=== PATIENT | female | born 1950 | race Caucasian/White ===

== ENCOUNTER 2016-12-22 10:26 | Emergency (ER) | payer OTHER ==
[~2016-12-22] VITALS: Ht 157.5 cm; Wt 54.4 kg
--- NOTE | ~2016-12-22 | EKG ---
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 : 1950 Requested By: Clemencia Hernandes Order Number: [id number] MD: Lev Zepeda Measurements Intervals [place] Rate: 96 P: AL: QRS: 75 QRSD: 116 T: -85 QT: 376 QTc: 476 Interpretive Statements Atrial fibrillation Multiple ventricular premature complexes Nonspecific intraventricular conduction delay Borderline repolarization abnormality No previous ECG available for comparison Electronically Signed On 12-23-2016 7:52:41 CDT by Lev Zepeda [email or web address] <ELECTRONICALLY SIGNED> By: Lev Zepeda MD, [facility] 12/23/16 0752 1036 1036 Lev Zepeda MD, FACC /EPI
[2016-12-22 10:26] VITALS: BP 127/78
[2016-12-22 11:16] LABS: ABSOLUTE NEUTROPHILS 5.4 thou/uL (1.4-8.2); EOSINOPHILS 1.9 % (0.0-3.0); HEMATOCRIT 36.2 % (37.0-47.0); HEMOGLOBIN 12.3 gm/dL (12.0-15.0); LYMPHOCYTES 11.6 % (24.0-44.0); MCH 30.6 pg (26.0-34.0); MCHC 33.9 g/dL (28.0-37.0); MCV 90.1 fL (80.0-100.0); MONOCYTES 9.6 % (1.0-8.0); PLATELET COUNT 242 thou/uL (150-400); POLYS 75.9 % (36.0-66.0); RBC 4.01 mil/uL (4.20-5.00); RDW 15.2 % (10.5-14.5); WBC 7.1 thou/uL (4.0-11.0)
[2016-12-22 11:17] LABS: MANUAL DIFF NO
[2016-12-22] MEDS ORDERED: PRAVACHOL20 MG PO (11:24)
[2016-12-22] MEDS ORDERED: COREG3.125 MG PO (11:25)
[2016-12-22] MEDS ORDERED: DIGOXIN125 MCG PO (11:25)
[2016-12-22] MEDS ORDERED: JANUMET 50-1,01 EACH PO (11:25)
[2016-12-22] MEDS ORDERED: LASIX 80 MG TAB80 MG PO (11:25)
[2016-12-22 11:26] LABS: CALCIUM 9.3 mg/dL (8.5-10.1); CREATININE 0.8 mg/dL (0.6-1.0); POTASSIUM 3.5 mmol/L (3.5-5.1)
[2016-12-22] MEDS ORDERED: IRON325 PO (11:26)
[2016-12-22] MEDS ORDERED: NP THYROID90 MG PO (11:26)
[2016-12-22] MEDS ORDERED: COLACE100 MG PO (11:27)
[2016-12-22] MEDS ORDERED: COUMADIN 2 MG TA2 M1 PO (11:27)
[2016-12-22] MEDS ORDERED: POTASSIUM SUPP (11:27)
[2016-12-22 11:29] LABS: INR 2.1; PROTIME 21.6 Seconds (9.3-11.4)
[2016-12-22 11:38] LABS: TROPONIN-I 0.04 ng/mL (<0.04-0.07)
[2016-12-22 11:40] LABS: ALBUMIN 3.5 g/dL (3.4-5.0); DIRECT BILIRUBIN 0.3 mg/dL (<0.1-0.3); TOTAL BILIRUBIN 1.1 mg/dL (<0.1-1.0); TOTAL PROTEIN 6.3 g/dL (6.4-8.2)
[2016-12-22 12:19] LABS: ABG SAMPLE TYPE ARTERIAL; BE(vivo) 1.1 mmol/L (-2 to +3); HCO3 24.2 mmol/L (22.0-26.0); LACTATE 0.99 mmol/L (0.5-2.0); PO2 83.1 mmHg (80.0-100.0); STICK SITE R.RADIAL; sO2 96.8 % (92.0-98.0); tCO2 25.2 mmol/L (24.0-30.0)
[2016-12-22] MEDS ORDERED: LEVAQUIN 500 M500 MG PO (13:05)
[2016-12-22 13:45] VITALS: BP 114/76
== END 2016-12-22 13:45 | disposition home or self-care (01) ==
LOC: ER 10:26 → EROBS 12:01 → ER 13:45
PROVIDERS: Emergency Medicine
DX: J18.8 Other pneumonia, unspecified organism (principal); I48.91 Unspecified atrial fibrillation; E03.9 Hypothyroidism, unspecified; I10 Essential (primary) hypertension; E11.9 Type 2 diabetes mellitus without complications; Z95.2 Presence of prosthetic heart valve; Z88.6 Allergy status to analgesic agent; Z88.8 Allergy status to other drugs, medicaments and biological substances; Z88.0 Allergy status to penicillin; Z91.048 Other nonmedicinal substance allergy status

== ENCOUNTER → 2016-12-23 | Outpatient (CLI) | payer OTHER ==
[~2016-12-23] MED LIST: COLACE100 MG PO; COREG3.125 MG PO; COUMADIN 2 MG TA2 M1 PO; DIGOXIN125 MCG PO; IRON325 PO; JANUMET 50-1,01 EACH PO; LASIX 80 MG TAB80 MG PO; LEVAQUIN 500 M500 MG PO; NP THYROID90 MG PO; POTASSIUM SUPP; PRAVACHOL20 MG PO
--- NOTE | ~2016-12-23 | 2DMMODE ---
[facility] [place] [address] 2 D/M-MODE ECHOCARDIOGRAM Name: GUILLERMINA PINO Room #: REG [facility]#: [id number] Admission: 12/23/16 Attend Phys: Tong Aguilar MD Discharge: Date of : 54 Date of Service: 12/23/16 1626 Report #: [id number] THIS REPORT FOR: //name// APPROVED REPORT Study performed: 12/23/2016 15:39:29 EXAM: Comprehensive 2D, Doppler, and color-flow Echocardiogram Patient Location: Out-Patient Blood Pressure: 110/72 mmHg HR: 107 bpm Rhythm: Atrial Fibrillation Other Information Study Quality: Good Indications ICD: Dyspnea Atrial Fibrillation Cardiomyopathy Mechanical Mitral valve. 2D Dimensions RVDd: 47.14 mm LVEF(%): 35.94 (>50%) IVSd: 6.35 (7-11mm) LVOT Diam: 18.06 (18-24mm) LVDd: 66.71 mm PWd: 9.30 (7-11mm) Ascending Aorta: 34.67 mm LVDs: 54.89 (25-40mm) IVC: 28.00 mm Aortic Root: 29.87 mm Antonio's LVEF: 35.94 % Aortic Valve AoV Peak Hair.: 1.42 m/s AO Peak Gr.: 8.08 mmHg LV Max P.83 mmHg LV Max: 0.97 m/s Mitral Valve MV Peak Gr.: 18.62 mmHg MV PHT: 61.53 ms MV Mean Gr.: 5.93 mmHg MV Max Hair.: 2.16 m/s MV Mean Hair.: 1.04 m/s [facility] [address] [place] [address] 2 D/M-MODE ECHOCARDIOGRAM Name: GUILLERMINA PINO Room #: REG [facility]#: [id number] Admission: 12/23/16 Attend Phys: Tong Aguilar MD Discharge: Date of : 54 Date of Service: 12/23/16 1626 Report #: [id number] VTI: 358.23 mm Pulmonary Valve PV Peak Hair.: 1.00 m/s PV Peak Gr.: 3.98 mmHg Tricuspid Valve TR Peak Hair.: 3.63 m/s RAP Estimate: 10.00 mmHg TR Peak Gr.: 52.86 mmHg Left Ventricle Left ventricle is dilated. There is global hypokinesis of the left ventricle. There is normal left ventricular wall thickness. Left ventricular ejection fraction is severely decreased. LVEF is 20-25%. Diastolic function cannot be accurately assessed. Right Ventricle Right ventricle is mildly dilated. Right ventricle is hypokinetic. Atria Left atrium is severely dilated. Right atrium is severely dilated. Aortic Valve Aortic valve is trileaflet. Aortic valve is calcified. No aortic regurgitation is present. There is no aortic valvular stenosis. Mitral Valve The mitral valve is normal in structure. There is a mechanical mitral valve. The prosthetic mitral valve is not well visualized due to imaging artifacts from the prosthesis. There is no mitral valve regurgitation noted. Tricuspid Valve The tricuspid valve is normal in structure. There is severe tricuspid regurgitation. The right atrial pressure is estimated at 10 mmHg. There is severe pulmonary hypertension. Pulmonic Valve The pulmonary valve is normal in structure. There is no pulmonic valvular regurgitation. Great Vessels The aortic root is normal in size. IVC is dilated and collapses >50% with inspiration. [facility] [address] [place] [address] 2 D/M-MODE ECHOCARDIOGRAM Name: GUILLERMINA PINO Room #: REG [facility]#: [id number] Admission: 12/23/16 Attend Phys: Tong Aguilar MD Discharge: Date of : 54 Date of Service: 12/23/16 1626 Report #: [id number] Pericardium There is no pericardial effusion. <Conclusion> Left ventricle is dilated. Left ventricular ejection fraction is severely decreased. Right ventricle is mildly dilated. Left atrium is severely dilated. Right atrium is severely dilated. There is no aortic valvular stenosis. There is a mechanical mitral valve. The prosthetic mitral valve is not well visualized due to imaging artifacts from the prosthesis. There is severe tricuspid regurgitation. The right atrial pressure is estimated at 10 mmHg. There is severe pulmonary hypertension. <ELECTRONICALLY SIGNED> By: Tong Aguilar MD 12/23/16 1626 1626 1626 Tong Aguilar MD /INF
== END ==
LOC: CV 14:49
DX: R06.00 Dyspnea, unspecified (principal); I48.91 Unspecified atrial fibrillation; I42.9 Cardiomyopathy, unspecified

== ENCOUNTER 2016-12-27 14:14 | Inpatient (IN) | payer OTHER ==
[2016-12-27] VITALS (18 sets, daily range): BP systolic 99–176; BP diastolic 47–96
[~2016-12-27] VITALS: Ht 157.5 cm; Wt 58.3 kg
--- NOTE | ~2016-12-27 | HC ---
[facility] [place] [address] CONSULTATION Name: GUILLERMINA PINO Room #: 210-P [facility] IN M.R.#: [id number] Admission: 12/27/16 Attend Phys: Lane Li Discharge: 12/31/16 Date of : 54 Report #: [id number] THIS REPORT FOR: //name// CC: ALLI physician/PCP Lane Li INFECTIOUS DISEASE CONSULTATION HISTORY OF PRESENT ILLNESS: A 66-year-old white woman undergoes placement of an AICD through subxiphoid approach in 2015 and since May or June 2016, the patient is having chronic draining sinus tract in the subxiphoid area. Apparently, the patient received treatment with topical antibiotics. There is query about what she was advised, the reason for this chronic sinus tract is and she has no clear understanding of what is going on or she was not explained properly what was going on. Anyway, the patient is here now because of AICD firing. Apparently, recently treated with Levaquin for right lower lobe pneumonia and possibility that this may have triggered some cardiac arrhythmias entertained. No systemic symptoms. The patient relates she has chronic epigastric discomfort and some nausea shortly after eating. PAST MEDICAL HISTORY: Appendectomy. Tubal ligation. Hysterectomy. Cholecystectomy. Mitral valve replacement with a Cortez-Perdomo valve in 1976. Placement of AICD through left subxiphoid area in 2015. Chronic draining sinus tract. Cardiomyopathy. Congestive heart failure. SOCIAL HISTORY: , 3 children. No tobacco, no alcohol. DRUG ALLERGIES: ACETAMINOPHEN, CLINDAMYCIN, MELATONIN, PENICILLIN and QUINIDINE. MEDICATIONS: She is on treatment with cefuroxime 500 mg p.o. b.i.d., furosemide 80 mg p.o. daily, potassium chloride 20 mEq p.o. daily, alprazolam p.r.n., temazepam p.r.n., nitroglycerin p.r.n., magnesium and potassium supplementation per protocol and has received amiodarone intravenously. REVIEW OF SYSTEMS: See H and P, previous consultation. PHYSICAL EXAMINATION: GENERAL: Chronically ill-appearing woman, not toxic looking. VITAL SIGNS: Presenting with following vital signs: Temperature 97.5, pulse 62, respirations 21 and BP 122/54. HEENT: Head normocephalic, atraumatic. Pupils reactive. Mouth, no thrush. NECK: Supple. LUNGS: Decreased to absent breath sounds, right base. HEART: S1 and S2. mitral valvular sounds. [facility] [address] [place] [address] CONSULTATION Name: GUILLERMINA PINO Room #: 210-P [facility] IN M.R.#: [id number] Admission: 12/27/16 Attend Phys: Lane Li Discharge: 12/31/16 Date of : 54 Report #: [id number] BREAST EXAMINATION: Deferred. ABDOMEN: Hepatomegaly. PELVIC AND RECTAL EXAMINATION: Deferred. EXTREMITIES: No clubbing or cyanosis. CHEST EXAMINATION: There is a chronic draining sinus tract open wound in the subxiphoid area. No foul odor. NEUROLOGIC: Grossly within normal limits. LABORATORY DATA: Sodium 137, potassium 3.1, BUN 37, creatinine 1.1 and calcium 8.2. Albumin 2.5 g/dL. NT-proBNP 5553. Protime 48.7, INR 4.7. WBC 12.1, hemoglobin 12.7 and platelets 262,000. Incision gram stain revealed few WBCs, no organism and culture negative so far. RADIOLOGIC EVALUATION: Chest x-ray revealed significant cardiomegaly, a Cortez-Perdomo mitral valve prosthesis and left-sided chest ICD with wires going through the subxiphoid area. There is a lytic lesion in the left humerus. ASSESSMENT: 1. Chronic draining sinus tract, subxiphoid area, possibly infected defibrillator leads. 2. Status post Cortez-Perdomo mitral valve replacement in 1976. 3. Cardiomyopathy - ischemic. Congestive heart failure. Pulmonary hypertension. 4. Right lower lobe atelectasis, infiltrate. 5. Lytic lesion, left humerus. 6. Chronic kidney disease. 7. Hepatomegaly, possibly secondary to pulmonary hypertension. 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 I agree with CT scan of the chest. We will evaluate later on. Continue cefuroxime for time being. Obviously, if ICD leads are infected, these must be removed, though she is a high-risk surgical candidate. For the time being, continue cefuroxime. Final recommendations regarding antibiotic management pending culture results. Dr. Li and Dr. Stephenson, thank you for requesting my suggestions. <ELECTRONICALLY SIGNED> By: Cash Stephenson MD 01/05/17 1124 [id number] 0039 Cash Stephenson MD /nt
--- NOTE | ~2016-12-27 | HC ---
[facility] [place] [address] CONSULTATION Name: GUILLERMINA PINO Room #: 210-P ADM IN M.R.#: [id number] Admission: 12/27/16 Attend Phys: Lane Li Discharge: Date of : 54 Report #: [id number] THIS REPORT FOR: //name// CC: FAM physician/PCP Lane Li DATE OF SERVICE: 12/29/2016 PERSONAL PHYSICIAN: Dr. Li. CHIEF COMPLAINT: Sternal wound. HISTORY OF PRESENT ILLNESS: This is a 66-year-old white female who underwent defibrillator placement back in July of 2016 in [place] secondary to cardiac arrest from ventricular fibrillation. The patient states she travels around the country in a mobile home and most recently was having significant firing of her defibrillator, which prompted her to come to the Emergency Department to be evaluated. The patient supposedly had seen Dr. Aguilar from cardiology approximately a week ago who evaluated this defibrillator and felt it was okay for patient to go home; however, the patient states prior to admission to the hospital, patient was having multiple defibrillator firings, next had one in the Triage area of the Emergency Department. The patient because of this was admitted to the hospital. Upon admission to the hospital, the patient was noted to have a open sterile wound, which I have been asked to assist in the care of this time. The patient states the wound itself has been started as a small blister very shortly after the operative procedure putting the pacemaker. The patient states that it has slowly gotten better, but has not seen any type of wound care physician had done any specific type of treatments for this. PAST MEDICAL HISTORY: Atrial fibrillation, status post artificial mitral valve replacement, hypothyroidism, hypertension, diabetes, myocardial infarction back in 05/2016 with defibrillator placement placed in 07/2016. CURRENT MEDICATIONS: Multiple, reviewed the patient's medication list. DRUG ALLERGIES: PENICILLIN, QUINIDINE, CLINDAMYCIN, AND ACETAMINOPHEN. SOCIAL HISTORY: The patient states she does not smoke. She drinks alcohol. She and her travel around in [facility] in a motel home. FAMILY HISTORY: Not pertinent to current medical condition. REVIEW OF SYSTEMS: CONSTITUTIONAL: The patient denies fevers or chills. NEUROLOGIC: The patient has overall generalized weakness, but no isolated weakness in arms or legs. [address] [address] CONSULTATION Name: GUILLERMINA PINO Room #: 210[facility] IN M.R.#: [id number] Admission: 12/27/16 Attend Phys: Lane Li Discharge: Date of : 54 Report #: [id number] EYES: No complaints. ENT: No complaints. CARDIAC: The patient complains of persistent defibrillator firing but no actual chest pain, palpitations. RESPIRATORY: The patient has mild shortness of breath, but no associated cough or wheezes; however, the patient states she is actually currently being treated for pneumonia. GASTROINTESTINAL: The patient has a chronic nausea, but no actual abdominal pain. GENITOURINARY: The patient denies urgency or frequency. MUSCULOSKELETAL: No complaints. SKIN: There is open wound in the sternal region. PHYSICAL EXAMINATION: VITAL SIGNS: Stable. The patient is afebrile. GENERAL: This is an alert and oriented x 3, pleasant white female who is in no acute distress. HEENT: Normocephalic, atraumatic. Mucous membranes are dry. Pupils are round. Sclerae are white. NECK: Shows positive JVD, but no masses. BACK: Nontender. LUNGS: Clear. HEART: Regular. Chest wall shows an open wound at the inferior aspect of the sternum, which is mainly slough filled, however, with direct visualization within the wound you can see the exposed defibrillator leads, periwound itself is intact without significant erythema, warmth or signs of cellulitis. ABDOMEN: Soft, nontender. EXTREMITIES: The patient moves all extremities without difficulty. Bilateral heels are intact. NEUROLOGIC: Cranial nerves 2-12 are grossly intact. Motor and sensory grossly intact. LABORATORY DATA: White count 9.1, hemoglobin 10.8, electrolytes within normal limits. BUN is 34, creatinine 1.1. Albumin low at 2.3. WOUND CARE COURSE: At this time, given the exposed defibrillator leads, I do not want to within the wound itself, we must cover the wound with an Optifoam dressing this time. I will contact and review this with The buckle gluer about what their plan is for these exposed leads. Once again I prefer not do any type of packing or vigorous debridement of this wound given the exposed lead. I have reviewed this with the patient and her . IMPRESSION: 1. Chest wall wounds status post defibrillator placement, now with exposed defibrillator leads. 2. Cardiac arrest, status post defibrillator placement. [facility] [address] [place] [address] CONSULTATION Name: GUILLERMINA PINO Room #: 210 ADM IN M.R.#: [id number] Admission: 12/27/16 Attend Phys: Lane Li Discharge: Date of : 54 Report #: [id number] 3. Diabetes mellitus. 4. Atrial fibrillation. 5. Protein calorie malnutrition-severe with albumin of 2.3. PLAN: Described as above. Continue to follow the patient pending on her final treatment plan per the buckle gluer. We will also make sure we maximize the patient to oral protein supplementation for healing. I appreciate the ability to consult. By: 1339 0154 Bear Carr MD /nt
--- NOTE | ~2016-12-27 | EKG ---
[place] [address] [employer] [employer] 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 : 1950 Requested By: Bi Leung Order Number: [id number] MD: Reese Stephenson Measurements Intervals [place] Rate: 91 P: NE: QRS: 44 QRSD: 118 T: 33 QT: 403 QTc: 496 Interpretive Statements Atrial fibrillation Ventricular bigeminy Incomplete left bundle branch block Probable LVH with secondary repol abnrm Compared to ECG 12/22/2016 10:36:59 Left bundle-branch block now present Intraventricular conduction delay no longer present Electronically Signed On 12-27-2016 14:39:48 CDT by Reese Stephenson [email or web address] <ELECTRONICALLY SIGNED> By: Reese Stephenson MD 12/27/16 1439 143 1431 Reese Stephenson MD /RADHA
--- NOTE | ~2016-12-27 | HC ---
[facility] [address] [address] CONSULTATION Name: GUILLERMINA PINO Room #: 237-P ADM IN M.R.#: [id number] Admission: 12/27/16 Attend Phys: Lane Li Discharge: Date of : 54 Report #: [id number] THIS REPORT FOR: //name// CC: ALLI physician/PCP Lane Li HISTORY OF PRESENT ILLNESS: The patient is a 66-year-old female with a history of a mitral valve replacement with valve in [address] Aguilar as a new patient last week. She has a history of coronary artery disease with possible prior SD as well as atrial fibrillation, diabetes and hypertension. Speaking with the patient back in June, she had either a syncopal episode or cardiac arrest. It is hard to determine because she is somewhat of a poor historian. She was in [place], [place] at that time and she underwent attempt at placement of an ICD from the left subclavian position. Apparently due to the very high PA pressures, the RV lead would not stay in the right ventricle despite 2 physicians trying to implant the lead. As such they aborted this implant and she underwent a [employer] subcutaneous ICD implantation. She did well until approximately 2 weeks ago where she had few ICD shocks and was seen at an outside emergency room and therefore she came to see Dr. Aguilar last week to establish care with the health administrator. The patient and her live in an and travel across the country and do not really have a true home other than the . They thought that establishing care here in [place] made sense because [place]. As such, after they saw that she had the VT last week, it was decided to start her on oral amiodarone. She also underwent an echocardiogram last week in our clinic, which shows her EF is severely reduced at 20% with a normal functioning valve in the mitral position and evidence of pulmonary hypertension. Apparently on Tuesday she had another ICD shock and she had 2 more shocks this morning and may have had a shock while in the emergency room. Speaking with the patient today, she denies any chest pain. She reports her shortness of breath is stable. She denies any PND or orthopnea. She denies presyncope or syncope. PAST MEDICAL HISTORY: As reviewed above. SOCIAL HISTORY: She is status post appendectomy, tubal ligation, cholecystectomy and complete hysterectomy. She underwent subcutaneous ICD implantation back in June 2016. FAMILY HISTORY: Significant for father who from diabetes and the mother with some heart problems. SOCIAL HISTORY: She does not smoke or drink alcohol. ALLERGIES: Include ACETAMINOPHEN, CLINDAMYCIN, MELATONIN, PENICILLIN and QUINIDINE. MEDICATIONS: Include: [facility] [address] [place] [address] CONSULTATION Name: GUILLERMINA PINO Room #: 237-P ADM IN M.R.#: [id number] Admission: 12/27/16 Attend Phys: Lane Li Discharge: Date of : 54 Report #: [id number] 1. Pravastatin 10 mg a day. 2. Levaquin 500 mg a day. 3. Thyroid 90 mg tablet once a day. 4. Digoxin, which has recently been held due to the initiation of amiodarone. 5. Lasix 80 mg once a day. 6. Coreg 3.125 twice a day. 7. Janumet mg 1 tablet with meals twice a day. 8. Stool softener. 9. Iron. 10. Potassium. 11. Nasal decongestant p.r.n. 12. Warfarin 2 mg tablets. She monitors her own INR with her own INR machine. 13. Amiodarone 400 mg b.i.d. The amiodarone was started last week. REVIEW OF SYSTEMS: GENERAL: No fevers, chills. HEENT: No blurred vision. CARDIOVASCULAR: As above. PULMONARY: No productive cough. GASTROINTESTINAL: No nausea, vomiting. GENITOURINARY: No dysuria. MUSCULOSKELETAL: No myalgias, arthralgias. ENDOCRINE: No heat or cold intolerance. NEUROLOGIC: No focal weakness. PHYSICAL EXAMINATION: GENERAL: She is a thin appearing Cachectic female in no acute distress, lying flat in bed. HEENT: Oropharynx is clear. NECK: Supple, with no thyromegaly. HEART: Irregularly irregular with metallic cardiac sounds. She has elevated jugular venous pressure with JVD and prominent V waves. LUNGS: Clear to auscultation bilaterally. ABDOMEN: Soft, nontender, nondistended. However, she does have a bandage right over her xiphoid process. I removed this and this is the site where the epicardial LV lead was placed and this has not completely healed. There is no obvious drainage. There may be some mild redness. EXTREMITIES: There is no clubbing, cyanosis, edema. NEUROLOGIC: Cranial nerves 2-12 are intact. Her EKG shows atrial fibrillation with frequent PVCs. LABORATORY DATA: White count is 12.1, hemoglobin 12, platelets 262. INR is 4.7. Sodium 135, potassium 3.3. BUN 48, creatinine 1.5. AST 48, ALT 28, alkaline phosphatase 126. Troponin 0.04. ProBNP 5553. Dig is 0.5. [address] [address] CONSULTATION Name: GUILLERMINA PINO Room #: 237-P ADM IN ..#: [id number] Admission: 12/27/16 Attend Phys: Lane Contreras Jen Discharge: Date of : 54 Report #: [id number] In summary, the patient is a 66-year-old female with a history of cardiomyopathy, EF of 20% with recurrent ventricular arrhythmias. In terms of her ventricular tachycardia, I recommend inpatient management with initiation of IV amiodarone and will likely need a PICC line. In terms of her acute congestive heart failure with some evidence of volume overload, I would recommend continuing her on her cardiac medications including the Coreg. We will not start on BELINDA or an ARB at this time due to her renal insufficiency. Recommend some IV diuretics to try and improve her volume status. In terms of her supratherapeutic INR for her mechanical mitral valve, I recommend not reversing this. We should allow this to drift down on its own. Finally, in terms of the incision site dehiscence at the xiphoid process, it is unclear if this is a chronic infection and recommend both ID consult and wound care evaluation. I thank you for allowing me to participate in her care. We will follow. By: 1532 0033 Reese Stephenson MD /nt
[2016-12-27 14:49] LABS: ABSOLUTE NEUTROPHILS 9.9 thou/uL (1.4-8.2); BASOPHILS 1.2 % (0.0-2.0); EOSINOPHILS 1.3 % (0.0-3.0); HEMATOCRIT 37.3 % (37.0-47.0); HEMOGLOBIN 12.7 gm/dL (12.0-15.0); LYMPHOCYTES 11.3 % (24.0-44.0); MCH 30.5 pg (26.0-34.0); MCHC 33.9 g/dL (28.0-37.0); MONOCYTES 3.9 % (1.0-8.0); PLATELET COUNT 262 thou/uL (150-400); POLYS 82.3 % (36.0-66.0); RBC 4.15 mil/uL (4.20-5.00); RDW 15.6 % (10.5-14.5); WBC 12.1 thou/uL (4.0-11.0)
[2016-12-27 14:51] LABS: MANUAL DIFF NO
[2016-12-27 14:57] LABS: CALCIUM 8.6 mg/dL (8.5-10.1); CREATININE 1.5 mg/dL (0.6-1.0); POTASSIUM 3.3 mmol/L (3.5-5.1)
[2016-12-27 15:03] LABS: PROTIME 48.7 Seconds (9.3-11.4)
[2016-12-27 15:04] LABS: ALBUMIN 3.1 g/dL (3.4-5.0); MAGNESIUM 1.8 mg/dL (1.8-2.4); TOTAL BILIRUBIN 0.6 mg/dL (<0.1-1.0); TOTAL PROTEIN 6.3 g/dL (6.4-8.2); TROPONIN-I 0.04 ng/mL (<0.04-0.07)
[2016-12-27 15:05] LABS: INR 4.7
[2016-12-27 22:47] LABS: MAGNESIUM 2.2 mg/dL (1.8-2.4); POTASSIUM 3.5 mmol/L (3.5-5.1)
[2016-12-28] VITALS (16 sets, daily range): BP systolic 98–129; BP diastolic 41–85
[2016-12-28 06:38] LABS: ALBUMIN 2.5 g/dL (3.4-5.0); CALCIUM 8.2 mg/dL (8.5-10.1); CREATININE 1.1 mg/dL (0.6-1.0); INR 4.6; MAGNESIUM 1.9 mg/dL (1.8-2.4); POTASSIUM 3.1 mmol/L (3.5-5.1); TOTAL BILIRUBIN 0.4 mg/dL (<0.1-1.0); TOTAL PROTEIN 5.4 g/dL (6.4-8.2)
[2016-12-28 06:39] LABS: PROTIME 47.7 Seconds (9.3-11.4)
[2016-12-29 03:15] VITALS: BP 116/59
[2016-12-29 05:15] LABS: PROTIME 25.6 Seconds (9.3-11.4)
[2016-12-29 05:16] LABS: ALBUMIN 2.3 g/dL (3.4-5.0); CALCIUM 7.8 mg/dL (8.5-10.1); MAGNESIUM 1.7 mg/dL (1.8-2.4); PHOSPHORUS 2.6 mg/dL (2.5-4.9); POTASSIUM 3.9 mmol/L (3.5-5.1)
[2016-12-29 05:18] LABS: INR 2.5
[2016-12-29 10:15] VITALS: BP 122/50
[2016-12-29] MEDS ORDERED: LEVOTHYROXIN0.125 M1 PO (14:25)
[2016-12-29 15:55] VITALS: BP 115/51
[2016-12-29 19:55] VITALS: BP 105/54
[2016-12-30 04:29] VITALS: BP 99/48
[2016-12-30 04:47] LABS: HEMATOCRIT 31.7 % (37.0-47.0); HEMOGLOBIN 10.8 gm/dL (12.0-15.0); MCH 31.1 pg (26.0-34.0); MCHC 33.9 g/dL (28.0-37.0); MCV 91.5 fL (80.0-100.0); RBC 3.47 mil/uL (4.20-5.00); RDW 15.6 % (10.5-14.5); WBC 9.1 thou/uL (4.0-11.0)
[2016-12-30 05:04] LABS: CALCIUM 7.9 mg/dL (8.5-10.1); CREATININE 1.1 mg/dL (0.6-1.0); MAGNESIUM 1.7 mg/dL (1.8-2.4)
[2016-12-30 07:23] LABS: INR 1.4
[2016-12-30 07:25] VITALS: BP 98/46
[2016-12-30 15:04] VITALS: BP 100/59
[2016-12-30 19:29] VITALS: BP 105/46
[2016-12-30 23:49] VITALS: BP 113/52
[2016-12-31 03:41] VITALS: BP 125/54
[2016-12-31 04:35] LABS: INR 1.4; PROTIME 14.6 Seconds (9.3-11.4)
[2016-12-31 05:57] LABS: MAGNESIUM 1.5 mg/dL (1.8-2.4)
[2016-12-31 07:30] VITALS: BP 128/90
[2016-12-31 07:35] VITALS: BP 96/76
[2016-12-31 11:35] VITALS: BP 120/53
[2016-12-31] MEDS ORDERED: CEFUROXIME250 MG PO (14:33)
[2016-12-31] MEDS ORDERED: PACERONE 200 M200 M1 PO (14:33)
[2016-12-31] MEDS ORDERED: ENOXAPARIN60 MG/0.1 SUBQ (14:33)
[2016-12-31] MEDS ORDERED: COUMADIN 5 MG TA5 M1 PO (14:33)
[2016-12-31 15:00] VITALS: BP 126/48
== END 2016-12-31 15:40 | disposition short-term general hospital (02) | DRG 314 ==
LOC: ER 14:14 → EROBS 15:06 → ICU 15:06 → 4S 12-28 13:12 → 2N 12-29 11:46
PROVIDERS: Emergency Medicine; Hospitalist; Internal Medicine Cardiovascular Disease; Nurse Practitioner Gerontology; Podiatrist
DX: T82.897A Other specified complication of cardiac prosthetic devices, implants and grafts, initial encounter (principal); I50.23 Acute on chronic systolic (congestive) heart failure; E43 Unspecified severe protein-calorie malnutrition; J69.0 Pneumonitis due to inhalation of food and vomit; I13.0 Hypertensive heart and chronic kidney disease with heart failure and stage 1 through stage 4 chronic kidney disease, or unspecified chronic kidney disease; I47.2 Ventricular tachycardia; J98.11 Atelectasis; I48.91 Unspecified atrial fibrillation; E03.9 Hypothyroidism, unspecified; I27.2 Other secondary pulmonary hypertension; I25.10 Atherosclerotic heart disease of native coronary artery without angina pectoris; E11.9 Type 2 diabetes mellitus without complications; I25.5 Ischemic cardiomyopathy; M89.9 Disorder of bone, unspecified; N18.9 Chronic kidney disease, unspecified; R16.0 Hepatomegaly, not elsewhere classified; E87.6 Hypokalemia; E86.0 Dehydration; T37.8X5A Adverse effect of other specified systemic anti-infectives and antiparasitics, initial encounter; Y83.8 Other surgical procedures as the cause of abnormal reaction of the patient, or of later complication, without mention of misadventure at the time of the procedure; Y92.89 Other specified places as the place of occurrence of the external cause; I25.2 Old myocardial infarction; Z95.2 Presence of prosthetic heart valve; Z90.49 Acquired absence of other specified parts of digestive tract; Z90.710 Acquired absence of both cervix and uterus; Z68.23 Body mass index [BMI] 23.0-23.9, adult; Z86.74 Personal history of sudden cardiac arrest; Z88.0 Allergy status to penicillin; Z79.899 Other long term (current) drug therapy; Z88.1 Allergy status to other antibiotic agents; Z88.8 Allergy status to other drugs, medicaments and biological substances; Z82.49 Family history of ischemic heart disease and other diseases of the circulatory system; Z83.3 Family history of diabetes mellitus
CPT/HCPCS: 10078; 10081; 10100; 27000